=== PATIENT | female | born 1990 | race Caucasian/White ===

== ENCOUNTER 2017-11-21 19:24 | Observation (INO) | payer OTHER ==
[~2017-11-21] VITALS: Ht 162.6 cm; Wt 56.7 kg
--- NOTE | 2017-11-21 20:06 | ED Psychosocial ---
General Chief Complaint: Overdose Stated Complaint: OVERDOSE MED Source: patient Exam Limitations: no limitations History of Present Illness Date Seen by Provider: Nov 21, 2017 Time Seen by Provider: 20:05 Initial Comments Took between 20 and 30 of the 500 mg extra strength Tylenol tablets. She also took 2 hydrocodone unknown strength and 2 NyQuil tablets. She had alcohol this morning which she states was 3 shots. She did this because her moved out a few weeks ago. She called her vadim who then brought her to the emergency room. Timing/Duration: constant Associated Symptoms: ingestion Allergies and Home Medications Allergies Coded Allergies: No Known Drug Allergies (Unverified , 11/21/17) Home Medications No Active Prescriptions or Reported Meds Constitutional: see HPI EENTM: see HPI Respiratory: see HPI Cardiovascular: no symptoms reported Genitourinary: no symptoms reported Musculoskeletal: no symptoms reported Skin: no symptoms reported Psychiatric/Neurological: No Symptoms Reported Past Cdqleva-Ltxkyp-Knstvr Hx Patient Social History Recent Foreign Travel: No Contact w/Someone Who Travel: No Physical Exam Vital Signs Vital Sign - Last 12Hours 11/21/17 19:55 Temp 96.8 Pulse 110 Resp 18 B/P (MAP) 109/81 (90) Pulse Ox 95 O2 Delivery Room Air Capillary Refill : General Appearance: WD/WN, no apparent distress HEENT: other (lethargic) Neck: non-tender, full range of motion Respiratory: normal breath sounds, no respiratory distress, no accessory muscle use Cardiovascular: regular rate, rhythm, no murmur Gastrointestinal: normal bowel sounds, non tender, soft Extremities: normal range of motion, non-tender Neurologic/Psychiatric: normal mood/affect, oriented x 3, other (lethargic) Appearance/Memory: appropriate appearance, appropriate insight Thoughts/Hallucinations: normal thought pattern, no apparent hallucination Skin: normal color, warm/dry Progress/Results/Core Measures Results/Orders Lab Results Laboratory Tests Test 11/21/17 20:01 11/21/17 20:26 11/21/17 21:05 Range/Units White Blood Count 4.8 4.3-11.0 10^3/uL Red Blood Count 4.55 4.35-5.85 10^6/uL Hemoglobin 12.2 11.5-16.0 G/DL Hematocrit 37 35-52 % Mean Corpuscular Volume 82 80-99 FL Mean Corpuscular Hemoglobin 27 25-34 PG Mean Corpuscular Hemoglobin Concent 33 32-36 G/DL Red Cell Distribution Width 18.6 H 10.0-14.5 % Platelet Count 416 H 130-400 10^3/uL Mean Platelet Volume 10.1 7.4-10.4 FL Neutrophils (%) (Auto) 28 L 42-75 % Lymphocytes (%) (Auto) 57 H 12-44 % Monocytes (%) (Auto) 10 0-12 % Eosinophils (%) (Auto) 2 0-10 % Basophils (%) (Auto) 3 0-10 % Neutrophils # (Auto) 1.4 L 1.8-7.8 X 10^3 Lymphocytes # (Auto) 2.8 1.0-4.0 X 10^3 Monocytes # (Auto) 0.5 0.0-1.0 X 10^3 Eosinophils # (Auto) 0.1 0.0-0.3 10^3/uL Basophils # (Auto) 0.2 H 0.0-0.1 10^3/uL Neutrophils % (Manual) 42 % Lymphocytes % (Manual) 52 % Monocytes % (Manual) 4 % Eosinophils % (Manual) 1 % Basophils % (Manual) 1 % Band Neutrophils 0 % Blood Morphology Comment NORMAL Sodium Level 141 135-145 MMOL/L Potassium Level 4.5 3.6-5.0 MMOL/L Chloride Level 103 98-107 MMOL/L Carbon Dioxide Level 23 21-32 MMOL/L Anion Gap 15 H 5-14 MMOL/L Blood Urea Nitrogen 15 7-18 MG/DL Creatinine 1.15 0.60-1.30 MG/DL Estimat Glomerular Filtration Rate 56 BUN/Creatinine Ratio 13 Glucose Level 101 70-105 MG/DL Calcium Level 8.3 L 8.5-10.1 MG/DL Total Bilirubin 0.6 0.1-1.0 MG/DL Aspartate Amino Transf (AST/SGOT) 50 H 5-34 U/L Alanine Aminotransferase (ALT/SGPT) 29 0-55 U/L Alkaline Phosphatase 73 40-136 U/L Total Protein 7.4 6.4-8.2 GM/DL Albumin 3.8 3.2-4.5 GM/DL Serum Test, Qualitative NEGATIVE NEGATIVE Salicylates Level < 5.0 L 5.0-20.0 MG/DL Serum Alcohol 269 H <10 MG/DL Urine Color YELLOW Urine Clarity CLEAR Urine pH 5 5-9 Urine Specific [place] 1.020 1.016-1.022 Urine Protein NEGATIVE NEGATIVE Urine Glucose (UA) NEGATIVE NEGATIVE Urine Ketones NEGATIVE NEGATIVE Urine Nitrite NEGATIVE NEGATIVE Urine Bilirubin NEGATIVE NEGATIVE Urine Urobilinogen NORMAL NORMAL MG/DL Urine Leukocyte Esterase NEGATIVE NEGATIVE Urine RBC (Auto) 1+ H NEGATIVE Urine RBC RARE /HPF Urine WBC 0-2 /HPF Urine Squamous Epithelial Cells 5-10 /HPF Urine Crystals NONE /LPF Urine Bacteria TRACE /HPF Urine Casts NONE /LPF Urine Mucus NEGATIVE /LPF Urine Culture Indicated NO Urine Opiates Screen NEGATIVE NEGATIVE Urine Oxycodone Screen NEGATIVE NEGATIVE Urine Methadone Screen NEGATIVE NEGATIVE Urine Propoxyphene Screen NEGATIVE NEGATIVE Urine Barbiturates Screen NEGATIVE NEGATIVE Ur Tricyclic Antidepressants Screen NEGATIVE NEGATIVE Urine Phencyclidine Screen NEGATIVE NEGATIVE Urine Amphetamines Screen NEGATIVE NEGATIVE Urine Methamphetamines Screen NEGATIVE NEGATIVE Urine Benzodiazepines Screen NEGATIVE NEGATIVE Urine Cocaine Screen NEGATIVE NEGATIVE Urine Cannabinoids Screen NEGATIVE NEGATIVE Acetaminophen Level 100 *H 10-30 UG/ML My Orders Orders - FREDRICK STRATTON [employer] Cbc With Automated Diff (11/21/17 19:46) Comprehensive Metabolic Panel (11/21/17 19:46) Ua Culture If Indicated (11/21/17 19:46) Urine Bedside (11/21/17 19:46) Alcohol (11/21/17 19:46) Salicylate (11/21/17 19:46) Saline Lock/Iv-Start (11/21/17 19:46) Ekg Tracing (11/21/17 19:46) Drug Screen Stat (Urine) (11/21/17 20:03) Hcg,Qualitative Serum (11/21/17 20:03) Ns Iv 1000 Ml (Sodium Chloride 0.9%) (11/21/17 20:15) Ondansetron Injection (Zofran Injectio (11/21/17 20:15) Acetaminophen (11/21/17 21:00) Manual Differential (11/21/17 20:01) Acetylcysteine Injection (Acetadote Inje (11/21/17 21:30) Medications Given in ED Current Medications Medications Dose Ordered Sig/Rodrick Route Start Time Stop Time Status Last Admin Dose Admin Ondansetron HCl 8 mg ONCE ONCE IVP 11/21/17 20:15 11/21/17 20:16 DC 11/21/17 20:23 8 MG Vital Signs/I&O Vital Sign - Last 12Hours 11/21/17 19:55 Temp 96.8 Pulse 110 Resp 18 B/P (MAP) 109/81 (90) Pulse Ox 95 O2 Delivery Room Air Departure Communication (Admissions) Time/Spoke to Admitting Phy: 21:45 Communication I spoke with Dr. Lozano, we will admit the patient, consult mental health in AM. Progress Notes 2009-poison control did call to notify us prior to the patient's arrival that the patient would be coming as her had called them. They recommended typical tox screen, the 4 hour Tylenol level should be checked at 2100, if elevated then treat with acetylcysteine, however a Tylenol level before the 4 hour susy holds no value. 2145- spoke with poison control. Do not recommend treatment of the Tylenol overdose until the Tylenol level is over 150. Since this was drawn at the 4 hour susy we are already at peak plasma level so this will not need treatment. Impression Impression: Primary Impression: Suicide attempt Disposition: ADMITTED INPATIENT Condition: Stable Admissions Decision to Admit Reason: Admit from ER (General) Decision to Admit/Date: Nov 21, 2017 Time/Decision to Admit Time: 20:11 Departure-Patient Inst. Referrals: NO,LOCAL PHYSICIAN (PCP) Primary Care Physician Patient Instructions: ALCOHOL AND SUBSTANCE ABUSE Scripts No Active Prescriptions or Reported Meds FREDRICK STRATTON APRN Nov 21, 2017 20:06
[2017-11-21 20:10] LABS: BASOPHILS # (AUTO) 0.2 10^3/uL (0.0-0.1); BASOPHILS % (AUTO) 3 % (0-10); EOSINOPHILS # (AUTO) 0.1 10^3/uL (0.0-0.3); EOSINOPHILS % (AUTO) 2 % (0-10); HEMATOCRIT 37 % (35-52); HEMOGLOBIN 12.2 G/DL (11.5-16.0); LYMPHOCYTES # (AUTO) 2.8 X 10^3 (1.0-4.0); LYMPHOCYTES % (AUTO) 57 % (12-44); MEAN CORPUSCULAR HEMOGLOBIN 27 PG (25-34); MEAN CORPUSCULAR HGB CONC 33 G/DL (32-36); MEAN CORPUSCULAR VOLUME 82 FL (80-99); MEAN PLATELET VOLUME 10.1 FL (7.4-10.4); MONOCYTES # (AUTO) 0.5 X 10^3 (0.0-1.0); MONOCYTES % (AUTO) 10 % (0-12); NEUTROPHILS # (AUTO) 1.4 X 10^3 (1.8-7.8); NEUTROPHILS % (AUTO) 28 % (42-75); PLATELET COUNT 416 10^3/uL (130-400); RED BLOOD COUNT 4.55 10^6/uL (4.35-5.85); RED CELL DISTRIBUTION WIDTH 18.6 % (10.0-14.5); WHITE BLOOD COUNT 4.8 10^3/uL (4.3-11.0)
[2017-11-21] MEDS ORDERED: NS IV 1000 ML 1,000 ML IV SCH (20:15)
[2017-11-21] MEDS ORDERED: ONDANSETRON 4 MG/2 ML (SDV) Z0FRAN IVP ONE (20:15)
[2017-11-21 20:32] LABS: BILIRUBIN,URINE NEGATIVE (NEGATIVE); CLARITY,URINE CLEAR; COLOR,URINE YELLOW; GLUCOSE, URINE (UA) NEGATIVE (NEGATIVE); KETONES,URINE NEGATIVE (NEGATIVE); LEUKOCYTE ESTERASE ,URINE NEGATIVE (NEGATIVE); NITRITE,URINE NEGATIVE (NEGATIVE); PH,URINE 5 (5-9); PROTEIN,URINE NEGATIVE (NEGATIVE); UROBILINOGEN,URINE NORMAL (NORMAL)
[2017-11-21 20:36] LABS: ALANINE AMINOTRANSFERASE 29 U/L (0-55); ALBUMIN 3.8 GM/DL (3.2-4.5); ALKALINE PHOSPHATASE 73 U/L (40-136); BILIRUBIN,TOTAL 0.6 MG/DL (0.1-1.0); CALCIUM 8.3 MG/DL (8.5-10.1); CARBON DIOXIDE 23 MMOL/L (21-32); CHLORIDE 103 MMOL/L (98-107); GLUCOSE 101 MG/DL (70-105); POTASSIUM 4.5 MMOL/L (3.6-5.0); SODIUM 141 MMOL/L (135-145); TOTAL PROTEIN 7.4 GM/DL (6.4-8.2)
[2017-11-21 20:39] LABS: BUN/CREATININE RATIO 13; CREATININE SERUM 1.15 MG/DL (0.60-1.30); GFR ESTIMATED 56
[2017-11-21 20:40] LABS: SALICYLATE < 5.0 MG/DL (5.0-20.0)
[2017-11-21 20:44] LABS: BAND NEUTROPHILS 0 %; BASOPHILS % (MANUAL) 1 %; EOSINOPHILS % (MANUAL) 1 %; LYMPHOCYTES % (MANUAL) 52 %; MONOCYTES % (MANUAL) 4 %; NEUTROPHILS % (MANUAL) 42 %; RBC MORPH NORMAL
[2017-11-21 20:52] LABS: BACTERIA,URINE TRACE /HPF; RBC,URINE RARE /HPF; WBC,URINE 0-2 /HPF
[2017-11-21 20:58] LABS: AMPHETAMINE SCREEN, URINE NEGATIVE (NEGATIVE); BARBITURATE SCREEN URINE NEGATIVE (NEGATIVE); BENZODIAZEPINES SCREEN URINE NEGATIVE (NEGATIVE); CANNABINOID SCREEN, URINE NEGATIVE (NEGATIVE); COCAINE SCREEN URINE NEGATIVE (NEGATIVE); METHADONE STAT NEGATIVE (NEGATIVE); METHAMPHETAMINE SCREEN URINE S NEGATIVE (NEGATIVE); OPIATE SCREEN URINE NEGATIVE (NEGATIVE); OXYCODONE STAT NEGATIVE (NEGATIVE); PROPOXYPHENE STAT NEGATIVE (NEGATIVE); TRICYCLIC ANTIDEPRESSANTS SCRE NEGATIVE (NEGATIVE)
[2017-11-21] MEDS ORDERED: D5W IV ONE (21:30)
[2017-11-21] MEDS ORDERED: ACETYLCYSTEINE IV ONE (21:30)
[2017-11-21 21:59] LABS: INR 1.1 (0.8-1.4); PROTHROMBIN TIME PATIENT 14.3 SEC (12.2-14.7)
[2017-11-21 23:30] VITALS: BP 115/83
[2017-11-21 23:45] VITALS: BP 109/88
[2017-11-21] MEDS ORDERED: ONDANSETRON 4 MG/2 ML (SDV) Z0FRAN IV PRN (23:45)
[2017-11-22] VITALS (13 sets, daily range): BP systolic 98–120; BP diastolic 64–85
[2017-11-22] MEDS: NS IV 1000 ML 1,000 ML IV SCH ×2 (00:01→08:46)
[2017-11-22 05:06] LABS: BASOPHILS # (AUTO) 0.1 10^3/uL (0.0-0.1); BASOPHILS % (AUTO) 3 % (0-10); EOSINOPHILS # (AUTO) 0.1 10^3/uL (0.0-0.3); EOSINOPHILS % (AUTO) 1 % (0-10); HEMATOCRIT 33 % (35-52); HEMOGLOBIN 10.7 G/DL (11.5-16.0); LYMPHOCYTES % (AUTO) 41 % (12-44); MEAN CORPUSCULAR HEMOGLOBIN 27 PG (25-34); MEAN CORPUSCULAR HGB CONC 32 G/DL (32-36); MEAN CORPUSCULAR VOLUME 82 FL (80-99); MEAN PLATELET VOLUME 10.3 FL (7.4-10.4); MONOCYTES # (AUTO) 0.5 X 10^3 (0.0-1.0); MONOCYTES % (AUTO) 11 % (0-12); NEUTROPHILS # (AUTO) 2.2 X 10^3 (1.8-7.8); NEUTROPHILS % (AUTO) 45 % (42-75); PLATELET COUNT 310 10^3/uL (130-400); RED BLOOD COUNT 4.02 10^6/uL (4.35-5.85); RED CELL DISTRIBUTION WIDTH 18.4 % (10.0-14.5); WHITE BLOOD COUNT 4.8 10^3/uL (4.3-11.0)
[2017-11-22 05:26] LABS: ALANINE AMINOTRANSFERASE 25 U/L (0-55); ALBUMIN 3.4 GM/DL (3.2-4.5); ALKALINE PHOSPHATASE 70 U/L (40-136); BILIRUBIN,TOTAL 0.8 MG/DL (0.1-1.0); BUN/CREATININE RATIO 13; CALCIUM 7.6 MG/DL (8.5-10.1); CARBON DIOXIDE 16 MMOL/L (21-32); CHLORIDE 107 MMOL/L (98-107); CREATININE SERUM 0.94 MG/DL (0.60-1.30); GFR ESTIMATED > 60; POTASSIUM 3.8 MMOL/L (3.6-5.0); SODIUM 140 MMOL/L (135-145); TOTAL PROTEIN 6.5 GM/DL (6.4-8.2)
[2017-11-22 05:32] LABS: GLUCOSE 60 MG/DL (70-105)
[2017-11-22] MEDS ORDERED: 1/2 NS IV SOLUTION 1,000 ML IV PRN (05:50)
[2017-11-22] MEDS ORDERED: LORazepam INJ 2 MG/ML (ATIVAN) VIAL IM/IV PRN (06:00)
[2017-11-22] MEDS ORDERED: LORazepam 1 MG (ATIVAN) TAB PO PRN (06:00)
[2017-11-22] MEDS ORDERED: LORazepam INJ 2 MG/ML (ATIVAN) VIAL IV PRN (06:00)
[2017-11-22] MEDS ORDERED: SENNA W/DOCUSATE (SENOKOT S) TABLET PO PRN (06:00)
[2017-11-22] MEDS ORDERED: ONDANSETRON 4 MG/2 ML (SDV) Z0FRAN IV PRN (06:00)
[2017-11-22] MEDS ORDERED: D5 1/2 NS 1000 ML IV SOLUTION 1,000 ML IV PRN (06:00)
[2017-11-22] MEDS ORDERED: MAGNESIUM 1 GM/100 ML IVPB 100 ML IV SCH (06:00)
[2017-11-22] MEDS ORDERED: POTASSIUM CL 10MEQ/50ML IVPB 50 ML IV SCH (06:00)
[2017-11-22] MEDS ORDERED: KCL 20 MEQ TAB (K-DUR) PO SCH (06:00)
[2017-11-22] MEDS ORDERED: ANTACID SUSP 30 ML UDC (MYLANTA) PO PRN (06:00)
[2017-11-22] MEDS ORDERED: ONDANSETRON 4 MG (ZOFRAN) ORAL DISSOLVE TAB SL PRN (06:00)
[2017-11-22] MEDS ORDERED: THIAMINE 100 MG (VITAMIN B-1) TAB PO SCH (07:00)
[2017-11-22] MEDS ORDERED: MULTIVIT W/MINERALS TAB (THERAGRAN M) PO SCH (07:00)
[2017-11-22] MEDS ORDERED: INFLUENZA TRIvalent 2017-2018 0.5 ML/45 MCG SYR IM ONE (07:15)
[2017-11-22] MEDS ORDERED: FOLIC ACID 1 MG TAB PO SCH (09:00)
[2017-11-22] MEDS ORDERED: MAGNESIUM OXIDE (MAG-OX)400 MG TAB PO SCH (09:00)
--- NOTE | 2017-11-22 10:34 | Short Stay Summary-Hospitalist ---
HPI History of Present Illness: HPI/Chief Complaint Pt is a 26yoCF with no known past medical history who presented to the ER following an acute tylenol ingestion. She reports that she took 20 500mg tabs in an effort to make her come back. She states she did this because he just moved out and she was trying to get his attention. She adamantly denies any intent for self harm but was only trying to get her 's attention. She has never suffered from depression nor had any previous self harm incidents. She denies thought of suicide or homicide. She also believes that her alcohol intake prompted her to make such an extreme decision. Source: patient Date Seen 11/22/17 Time Seen by Provider: 08:00 Attending Physician Kulwinder Jarrell MD PCP No,Local Physician Referring Physician Date of Admission Nov 21, 2017 at 21:44 Home Medications & Allergies Home Medications Reviewed patient Home Medication Reconciliation Form Allergies Allergies Coded Allergies No Known Drug Allergies (Unverified11/21/17) Past Iqsgmyt-Gukhkq-Inmxbh Hx Patient Social History Marrital Status: Alcohol Use: Occasionally Uses Number of Drinks Today: 3 Alcohol Beverage of Choice: Vodka Recreational Drug Use: No Smoking Status: Never a Smoker Physical Abuse Screen: No Sexual Abuse: No Recent Foreign Travel: No Contact w/other who traveled: No Recent Hopitalizations: No Recent Infectious Disease Expo: No Seasonal Allergies Seasonal Allergies: No Surgeries No Respiratory No Cardiovascular No Neurological No Reproductive System : No Genitourinary No Gastrointestinal No Musculoskeletal No Endocrine History of Endocrine Disorders: No HEENT History of HEENT Disorders: No Cancer No Psychosocial History of Psychiatric Problem: No Integumentary History of Skin or Integumenta: No Blood Transfusions History of Blood Disorders: No Adverse Reaction to a Blood Tr: No Review of Systems Constitutional: No chills, No fever EENTM: No blurred vision, No double vision, No nose congestion, No throat pain Respiratory: No cough, No dyspnea on exertion, No short of breath Cardiovascular: No chest pain, No edema, No palpitations Gastrointestinal: No abdominal pain, No constipation, No diarrhea, No nausea, No vomiting Genitourinary: No dysuria, No frequency Musculoskeletal: No joint pain, No muscle pain Skin: No lesions, No rash Psychiatric/Neurological: Emotional Problems, Denies Headache, Denies Numbness , Denies Tingling Physical Exam Physical Exam Vital Signs Vital Sign - Last 12Hours 11/21/17 19:55 Temp 96.8 Pulse 110 Resp 18 B/P (MAP) 109/81 (90) Pulse Ox 95 O2 Delivery Room Air Capillary Refill : Less Than 3 Seconds General Appearance: No Apparent Distress, WD/WN HEENT: PERRL/EOMI, Moist Mucous Membranes, No Scleral Icterus (L), No Scleral Icterus (R) Neck: Non Tender, Supple Respiratory: Lungs Clear, No Respiratory Distress Cardiovascular: Regular Rate, Rhythm, No Murmur Gastrointestinal: Normal Bowel Sounds, Non Tender, Soft Extremity: Normal Capillary Refill, No Calf Tenderness Neurologic/Psychiatric: Alert, Oriented x3, Other (normal affect) Skin: Normal Color, Warm/Dry Results Results/Procedures Lab Laboratory Tests 11/21/17 20:01 11/22/17 04:50 Short Stay Diagnosis Discharge Diagnosis-Short Stay Admission Diagnosis Tylenol Ingestion Final Discharge Diagnosis Tylenol Ingestion Conclusion Plan See Problems Diagnosis/Problems Diagnosis/Problems (1) Tylenol overdose Assessment & Plan: Tylenol level below treatment threshold ED discussed with Poison Control and agreed with no NAC treatment Repeat tylenol level negative Denies any suicidal ideation and adamant that this was a cry for attention She signed a self harm contract and was seen and evaluated by [facility] and deemed safe for discharge I strongly recommended follow up with Mental Health and establishing a PCP. Qualifiers: Qualified Codes: T39.1X2A - Poisoning by 4-aminophenol derivatives, intentional self-harm, initial encounter (2) Normocytic anemia Assessment & Plan: Mild Clinical Quality Measures DVT/VTE Risk/Contraindication: RFS Level Per Nursing on Admit: 1=Low/No VTE PPX KULWINDER JARRELL MD Nov 22, 2017 10:34
--- NOTE | 2017-11-22 11:33 | History & Physical-Hospitalist ---
SUSANNE GAN MED STUDENT 11/22/17 1133: HPI History of Present Illness: HPI/Chief Complaint CC: suicide attempt HPI: Pt is a 26yoCF with no known past medical history who presented to the ER following ingestion of ~25 500mg extra strength tylenol, 2 hydrocodone of unknown dose, 2 NyQuil, and alcohol of uncertain quantity. Patient called her who promptly brought her to the ER. Patient reports that her moved out of their house about 2 weeks ago, and they have been fighting frequently since this time. Ingestion of the listed substances was reportedly for "attention [of her ]". Patient states that she is not suicidal, and "knew that the amount ingested would not cause her significant harm." She denies any previous SA, and denies any current thoughts or plans to hurt herself or others. Patient denies access to firearms in the home. Source: patient Exam Limitations: no limitations Date Seen 11/22/17 Time Seen by Provider: 09:30 Attending Physician Kulwinder Jarrell MD PCP No,Local Physician Referring Physician Date of Admission Nov 21, 2017 at 21:44 Home Medications & Allergies Home Medications Reviewed patient Home Medication Reconciliation Form Allergies Allergies Coded Allergies No Known Drug Allergies (Unverified11/21/17) Past Verhvsi-Shhssd-Frenqo Hx Patient Social History Marrital Status: Number of Children: 1 Number of living children: 1 Alcohol Use: Occasionally Uses Number of Drinks Today: 3 Alcohol Beverage of Choice: Vodka Recreational Drug Use: No Smoking Status: Never a Smoker Physical Abuse Screen: No Sexual Abuse: No Recent Foreign Travel: No Contact w/other who traveled: No Recent Hopitalizations: No Recent Infectious Disease Expo: No Seasonal Allergies Seasonal Allergies: No Surgeries No Respiratory No Cardiovascular No Neurological No Reproductive System : No Genitourinary No Gastrointestinal No Musculoskeletal No Endocrine History of Endocrine Disorders: No HEENT History of HEENT Disorders: No Cancer No Psychosocial History of Psychiatric Problem: No Integumentary History of Skin or Integumenta: No Blood Transfusions History of Blood Disorders: No Adverse Reaction to a Blood Tr: No Review of Systems Constitutional: No chills, No diaphoresis, No dizziness, No weakness EENTM: No hearing loss, No blurred vision, No double vision Respiratory: No cough, No dyspnea on exertion, No short of breath Cardiovascular: No chest pain, No palpitations Gastrointestinal: No abdominal pain, No constipation, No diarrhea, loss of appetite, No nausea, No vomiting Genitourinary: no symptoms reported Musculoskeletal: no symptoms reported Skin: no symptoms reported Psychiatric/Neurological: Emotional Problems Physical Exam Physical Exam Vital Signs Vital Sign - Last 12Hours 11/21/17 19:55 Temp 96.8 Pulse 110 Resp 18 B/P (MAP) 109/81 (90) Pulse Ox 95 O2 Delivery Room Air Capillary Refill : Less Than 3 Seconds General Appearance: No Apparent Distress, WD/WN HEENT: PERRL/EOMI, Moist Mucous Membranes Neck: Normal Inspection, Non Tender, Supple Respiratory: Lungs Clear, Normal Breath Sounds Cardiovascular: Regular Rate, Rhythm Gastrointestinal: Normal Bowel Sounds Extremity: Normal Capillary Refill, Normal Inspection, No Pedal Edema Neurologic/Psychiatric: Alert, Oriented x3, No Motor/Sensory Deficits Skin: Normal Color, Warm/Dry Results Results/Procedures Lab Laboratory Tests 11/21/17 20:01 11/22/17 04:50 Assessment/Plan Admission Diagnosis Acetaminophen toxicity Assessment and Plan 1) Acetaminophen toxicity - 4 hour level: 100 which does not meet threshold for NAC as verified with poison control - repeat level this AM: <10 - mental health eval today 2) High anion gap metabolic acidosis - secondary to toxicity - continue to monitor 3) Alcohol abuse - AWAS, CIWA - continue folic acid and thiamine FEN: IVF, replace lytes, regular diet VTE: none Code: full Dispo: discharge today pending mental health eval Diagnosis/Problems Diagnosis/Problems (1) Suicide attempt Status: Acute (2) Normocytic anemia (3) Tylenol overdose Qualifiers: Qualified Codes: T39.1X2A - Poisoning by 4-aminophenol derivatives, intentional self-harm, initial encounter Clinical Quality Measures DVT/VTE Risk/Contraindication: RFS Level Per Nursing on Admit: 1=Low/No VTE PPX KULWINDER JARRELL MD 11/24/17 1514: Home Medications & Allergies Allergies Allergies Coded Allergies No Known Drug Allergies (Unverified11/21/17) Physical Exam Physical Exam Vital Signs Vital Sign - Last 12Hours 11/21/17 19:55 Temp 96.8 Pulse 110 Resp 18 B/P (MAP) 109/81 (90) Pulse Ox 95 O2 Delivery Room Air Assessment/Plan Admission Diagnosis Note used for educational purposes only. Please see my note for diagnosis and treatment plan. SUSANNE GAN MED STUDENT Nov 22, 2017 11:33 KULWINDER JARRELL MD Nov 24, 2017 15:14
== END 2017-11-22 14:04 | disposition home or self-care (01) ==
LOC: ER 19:29 → UNDOADMOB 21:44 → ICU 21:44 → UNDODISOB 11-22 14:35
PROVIDERS: ADMIT Family Medicine; ATTEND Family Medicine
DX: T39.1X2A Poisoning by 4-Aminophenol derivatives, intentional self-harm, initial encounter (principal); T40.2X2A Poisoning by other opioids, intentional self-harm, initial encounter; T51.0X2A Toxic effect of ethanol, intentional self-harm, initial encounter; D64.9 Anemia, unspecified; F10.10 Alcohol abuse, uncomplicated
CPT/HCPCS: 36415; 80053; 80306; 80320; 80329; 81000; 82962; 84703; 85007; 85025; 85027; 85610; 85730; 87081; 93005; 96361; 96374; G0378

== ENCOUNTER 2019-05-01 18:27 | Emergency (ER) | payer OTHER ==
[~2019-05-01] VITALS: Ht 165.1 cm; Wt 50.8 kg
[2019-05-01 18:58] LABS: BASOPHILS # (AUTO) 0.1 10^3/uL (0.0-0.1); BASOPHILS % (AUTO) 1 % (0-10); EOSINOPHILS % (AUTO) 0 % (0-10); HEMATOCRIT 38 % (35-52); HEMOGLOBIN 13.4 G/DL (11.5-16.0); LYMPHOCYTES # (AUTO) 1.4 X 10^3 (1.0-4.0); LYMPHOCYTES % (AUTO) 23 % (12-44); MEAN CORPUSCULAR HEMOGLOBIN 32 PG (25-34); MEAN CORPUSCULAR HGB CONC 36 G/DL (32-36); MEAN CORPUSCULAR VOLUME 89 FL (80-99); MEAN PLATELET VOLUME 10.7 FL (7.4-10.4); MONOCYTES # (AUTO) 0.9 X 10^3 (0.0-1.0); MONOCYTES % (AUTO) 15 % (0-12); NEUTROPHILS # (AUTO) 3.7 X 10^3 (1.8-7.8); NEUTROPHILS % (AUTO) 61 % (42-75); PLATELET COUNT 213 10^3/uL (130-400); WHITE BLOOD COUNT 6.1 10^3/uL (4.3-11.0)
--- NOTE | 2019-05-01 19:05 | ED Abdominal Pain ---
General Chief Complaint: Abdominal/GI Problems Stated Complaint: ABD PAIN Nursing Triage Note: Pt arrived pov from [facility]. CO abd pain with concern it may be her appendix. Sepsis Screen: No Definite Risk History of Present Illness Date Seen by Provider: May 01, 2019 Time Seen by Provider: 18:50 Initial Comments 28 year old female presents for 3-4 day history of right abdominal pain. RUQ with no associated n/v/d. Denies constipation or change in stool color/co nsistency. Minimal appetite but drinking water and gatorade. Worked today, no problems. Rates pain 8/10. No previous abdominal surgeries. Evaluated at [facility] and sent her for follow up on Appendix. Took Excedrin 2 days ago and ibuprofen yesterday for pain. Pain is getting worse. Timing/Duration: 2-3 Days Severity/Quality: Moderate Location: RUQ Radiation: Scapula Activities at Onset: None Modifying Factors: Improves With Lying down, Improves With Resting Associated Symptoms: No Back Pain, No Chest Pain, No Diaphoresis, No Fever/Chills, No Fatigue, No Headache; Heartburn; No Nausea/Vomiting, No Rash, No Shortness of Air, No Swelling/Mass in Abdomen, No Syncope, No Weakness Allergies and Home Medications Allergies Coded Allergies: No Known Drug Allergies (Unverified , 11/21/17) Home Medications No Active Prescriptions or Reported Meds Patient Home Medication List Home Medication List Reviewed: Yes Review of Systems Review of Systems Constitutional: no symptoms reported, see HPI Gastrointestinal: See HPI; Denies Abdomen Distended; Abdominal Pain; Denies Blo od Streaked Stools, Denies Constipated, Denies Diarrhea, Denies Nausea; Poor Appetite (right upper quadrant); Denies Vomiting All Other Systems Reviewed Negative Unless Noted: Yes Past Xkihdyw-Fuxutf-Xnvwho Hx Past Med/Social Hx: Reviewed Nursing Past Med/Soc Hx Patient Social History Alcohol Use: Occasionally Uses Number of Drinks Today: FF Alcohol Beverage of Choice: Beer, Vodka Recreational Drug Use: No Smoking Status: Never a Smoker 2nd Hand Smoke Exposure: No Recent Foreign Travel: No Contact w/Someone Who Travel: No Recent Infectious Disease Expo: No Recent Hopitalizations: No Immunizations Up To Date Tetanus Booster (TDap): Unknown Seasonal Allergies Seasonal Allergies: No Past Medical History Surgeries: No Respiratory: No Cardiac: No Neurological: No : No Last Menstrual Period: Apr 24, 2019 Genitourinary: No Gastrointestinal: No Musculoskeletal: No Endocrine: No HEENT: No Cancer: No Psychosocial: No Integumentary: No Blood Disorders: No Adverse Reaction/Blood Tranf: No Physical Exam Vital Signs Vital Signs - First Documented 05/01/19 18:34 Temp 98.1 Pulse 68 Resp 14 B/P (MAP) 115/82 (93) Pulse Ox 100 O2 Delivery Room Air Capillary Refill : Less Than 3 Seconds Height/Weight/BMI Height: 5'5.00" Weight: 112lbs. 0.0oz. [id number]; 21.5 BMI Method:Stated General Appearance: WD/WN, no apparent distress Neck: non-tender, full range of motion, supple, normal inspection Respiratory: chest non-tender, lungs clear, normal breath sounds Cardiovascular: normal peripheral pulses, regular rate, rhythm Gastrointestinal: normal bowel sounds, soft; No distended, No guarding, No rebound; tenderness (right upper quadrant with positive Antunez sign.); No hernia, No mass Extremities: normal range of motion, non-tender, normal capillary refill Back: normal inspection, no CVA tenderness; No CVA tenderness (R), No CVA tenderness (L) Neurologic/Psychiatric: no motor/sensory deficits, alert, normal mood/affect, oriented x 3 Skin: normal color, warm/dry Progress/Results/Core Measures Results/Orders Lab Results Laboratory Tests Test 05/01/19 18:50 05/01/19 19:08 05/01/19 20:15 05/01/19 21:16 Range/Units White Blood Count 6.1 4.3-11.0 10^3/uL Red Blood Count 4.23 L 4.35-5.85 10^6/uL Hemoglobin 13.4 11.5-16.0 G/DL Hematocrit 38 35-52 % Mean Corpuscular Volume 89 80-99 FL Mean Corpuscular Hemoglobin 32 25-34 PG Mean Corpuscular Hemoglobin Concent 36 32-36 G/DL Red Cell Distribution Width 18.0 H 10.0-14.5 % Platelet Count 213 130-400 10^3/uL Mean Platelet Volume 10.7 H 7.4-10.4 FL Neutrophils (%) (Auto) 61 42-75 % Lymphocytes (%) (Auto) 23 12-44 % Monocytes (%) (Auto) 15 H 0-12 % Eosinophils (%) (Auto) 0 0-10 % Basophils (%) (Auto) 1 0-10 % Neutrophils # (Auto) 3.7 1.8-7.8 X 10^3 Lymphocytes # (Auto) 1.4 1.0-4.0 X 10^3 Monocytes # (Auto) 0.9 0.0-1.0 X 10^3 Eosinophils # (Auto) 0.0 0.0-0.3 10^3/uL Basophils # (Auto) 0.1 0.0-0.1 10^3/uL Sodium Level 125 *L 127 L 135-145 MMOL/L Potassium Level 4.2 5.4 H 3.6-5.0 MMOL/L Chloride Level 84 L 91 L 98-107 MMOL/L Carbon Dioxide Level 28 13 L 21-32 MMOL/L Anion Gap 13 23 H 5-14 MMOL/L Blood Urea Nitrogen 11 9 7-18 MG/DL Creatinine 0.96 0.99 0.60-1.30 MG/DL Estimat Glomerular Filtration Rate > 60 > 60 BUN/Creatinine Ratio 11 9 Glucose Level 87 94 70-105 MG/DL Calcium Level 8.4 L 7.7 L 8.5-10.1 MG/DL Corrected Calcium 9.0 8.3 L 8.5-10.1 MG/DL Total Bilirubin 1.7 H 1.6 H 0.1-1.0 MG/DL Aspartate Amino Transf (AST/SGOT) 414 H 435 H 5-34 U/L Alanine Aminotransferase (ALT/SGPT) 274 H 251 H 0-55 U/L Alkaline Phosphatase 147 H 136 40-136 U/L Total Protein 8.2 9.1 H 6.4-8.2 GM/DL Albumin 3.3 3.2 3.2-4.5 GM/DL Amylase Level 67 25-125 U/L Lipase 330 H 8-78 U/L Serum Test, Qualitative NEGATIVE NEGATIVE Acetaminophen Level 22 15 10-30 UG/ML Glucometer 101 70-110 MG/DL Urine Color YELLOW Urine Clarity CLEAR Urine pH 8 5-9 Urine Specific [place] 1.010 L 1.016-1.022 Urine Protein NEGATIVE NEGATIVE Urine Glucose (UA) NEGATIVE NEGATIVE Urine Ketones NEGATIVE NEGATIVE Urine Nitrite NEGATIVE NEGATIVE Urine Bilirubin NEGATIVE NEGATIVE Urine Urobilinogen NORMAL NORMAL MG/DL Urine Leukocyte Esterase 1+ H NEGATIVE Urine RBC (Auto) NEGATIVE NEGATIVE Urine RBC NONE /HPF Urine WBC 0-2 /HPF Urine Squamous Epithelial Cells 0-2 /HPF Urine Crystals NONE /LPF Urine Bacteria TRACE /HPF Urine Casts NONE /LPF Urine Mucus NEGATIVE /LPF Urine Culture Indicated NO Urine Opiates Screen NEGATIVE NEGATIVE Urine Oxycodone Screen NEGATIVE NEGATIVE Urine Methadone Screen NEGATIVE NEGATIVE Urine Propoxyphene Screen NEGATIVE NEGATIVE Urine Barbiturates Screen NEGATIVE NEGATIVE Ur Tricyclic Antidepressants Screen NEGATIVE NEGATIVE Urine Phencyclidine Screen NEGATIVE NEGATIVE Urine Amphetamines Screen NEGATIVE NEGATIVE Urine Methamphetamines Screen NEGATIVE NEGATIVE Urine Benzodiazepines Screen NEGATIVE NEGATIVE Urine Cocaine Screen NEGATIVE NEGATIVE Urine Cannabinoids Screen NEGATIVE NEGATIVE My Orders Orders - NINA,BRENDA CAREER AND GUIDANCE COUNSELOR Amylase (05/01/19 18:52) Cbc With Automated Diff (05/01/19 18:52) Comprehensive Metabolic Panel (05/01/19 18:52) Lipase (05/01/19 18:52) Ua Culture If Indicated (05/01/19 18:52) Accucheck Stat ONCE (05/01/19 18:52) Ed Iv/Invasive Line Start (05/01/19 19:17) Ns Iv 1000 Ml (Sodium Chloride 0.9%) (05/01/19 19:17) Ketorolac Injection (Toradol Injection) (05/01/19 19:32) Us Gallbladder [id number] (05/01/19 19:32) Hcg,Qualitative Serum (05/01/19 19:42) Ketorolac Injection (Toradol Injection) (05/01/19 19:30) Acetaminophen (05/01/19 20:00) Drug Screen Stat (Urine) (05/01/19 21:00) Acetaminophen (05/01/19 21:10) Comprehensive Metabolic Panel (05/01/19 21:10) Vital Signs/I&O 05/01/19 05/01/19 18:34 21:50 Temp 98.1 98.1 Pulse 68 68 Resp 14 18 B/P (MAP) 115/82 (93) 109/78 (88) Pulse Ox 100 100 O2 Delivery Room Air Blood Pressure Mean: 93 Progress Progress Note : Time: 18:50 Progress Note Patient seen and evaluated, will obtain labs and UA. 1914 Toradol 30 mg IV and normal saline 1 L. Patient has not been able to provide a UA. 1929 discussed labs and exam with Dr. Rincon will obtain ultrasound of gall bladder. Patient denies history of pancreatitis or hepatitis. 1999 and acetaminophen level elevated, patient denies recent use of any Tylenol or other products contain acetaminophen. Ultrasound normal for pancreas and gallbladder. 2029 patient reports pain has improved since the Toradol. She reports no further abdominal pain, nausea or vomiting. 2099 Dr. Rincon recommended low fat/no dairy diet, follow up in 1 week with him. 2129 discharge instructions and return precautions reviewed with the patient. All questions answered. Diagnostic Imaging Diagonstic Imaging: Ultrasound Plain Films/CT/US/NM/MRI: abdomen Comments NAME: GORDON MICHAEL [facility] REC#: [id number] PT STATUS: REG ER : 1990 PHYSICIAN: BRENDA WOOD ADMIT DATE: 05/01/19/ER Draft Date of Exam:05/01/19 US GALLBLADDER [id number] PROCEDURE: US Gallbladder. TECHNIQUE: Multiple real-time grayscale images were obtained over the right upper quadrant in various projections. INDICATION: Abdominal pain. Liver is normal in size at 16.3 cm. No discrete liver mass is identified. Portal vein is patent and shows normal direction of flow. Gallbladder is without stones or sludge. No wall thickening or biliary ductal dilatation is seen. Pancreas is unremarkable. Right kidney is without calculi or hydronephrosis. There is no ascites. IMPRESSION: Unremarkable gallbladder ultrasound. Dictated on workstation # [id number] Dict: 05/01/192007 Trans: 05/01/192011 PADDY [id number] Interpreted by: FERNANDA DAVENPORT MD Electronically signed by Reviewed: Reviewed/Discussed Departure Impression Primary Impression: Pain of upper abdomen Disposition: HOME, SELF-CARE Condition: Improved Departure-Patient Inst. Decision time for Depature: 21:15 Referrals: NO,LOCAL PHYSICIAN (PCP/Family) Primary Care Physician Patient Instructions: Acute Abdomen (Belly Pain), Adult (DC) Add. Discharge Instructions: Follow up with Dr Rincon, call his office tomorrow for 1 week appt. [phone] Avoid dairy and fats in diet (no fried foods or high fat foods). If pain increases, go to clear liquid diet and call for appointment. Increase water intake. You may take ibuprofen 600 mg every 8 hours for pain. Return to emergency department for fever greater than 101, increased abdominal pain associated with nausea and vomiting, or new concerns. All discharge instructions reviewed with patient and/or family. Voiced understanding. Scripts No Active Prescriptions or Reported Meds Copy Copies To 1: JERROD RINCON AMY ARNP May 01, 2019 19:05
[2019-05-01 19:15] LABS: ALANINE AMINOTRANSFERASE 274 U/L (0-55); ALBUMIN 3.3 GM/DL (3.2-4.5); ALKALINE PHOSPHATASE 147 U/L (40-136); AMYLASE 67 U/L (25-125); BILIRUBIN,TOTAL 1.7 MG/DL (0.1-1.0); BUN/CREATININE RATIO 11; CALCIUM 8.4 MG/DL (8.5-10.1); CARBON DIOXIDE 28 MMOL/L (21-32); CHLORIDE 84 MMOL/L (98-107); CREATININE SERUM 0.96 MG/DL (0.60-1.30); GFR ESTIMATED > 60; GLUCOSE 87 MG/DL (70-105); LIPASE 330 U/L (8-78); POTASSIUM 4.2 MMOL/L (3.6-5.0); TOTAL PROTEIN 8.2 GM/DL (6.4-8.2)
[2019-05-01 19:16] LABS: SODIUM 125 MMOL/L (135-145)
[2019-05-01] MEDS ORDERED: NS IV 1000 ML 1,000 ML IV SCH (19:17)
[2019-05-01] MEDS ORDERED: KETOROLAC 30 MG/ML VIAL ONE (19:30)
[2019-05-01] MEDS ORDERED: KETOROLAC 30 MG/ML VIAL IVP STA (19:32)
--- NOTE | 2019-05-01 20:12 | Diagnostic Imaging Report ---
PROCEDURE: US Gallbladder. TECHNIQUE: Multiple real-time grayscale images were obtained over the right upper quadrant in various projections. INDICATION: Abdominal pain. Liver is normal in size at 16.3 cm. No discrete liver mass is identified. Portal vein is patent and shows normal direction of flow. Gallbladder is without stones or sludge. No wall thickening or biliary ductal dilatation is seen. Pancreas is unremarkable. Right kidney is without calculi or hydronephrosis. There is no ascites. IMPRESSION: Unremarkable gallbladder ultrasound. Dictated by: Dictated on workstation # [id number]
[2019-05-01 20:22] LABS: BILIRUBIN,URINE NEGATIVE (NEGATIVE); CLARITY,URINE CLEAR; COLOR,URINE YELLOW; GLUCOSE, URINE (UA) NEGATIVE (NEGATIVE); KETONES,URINE NEGATIVE (NEGATIVE); LEUKOCYTE ESTERASE ,URINE 1+ (NEGATIVE); NITRITE,URINE NEGATIVE (NEGATIVE); PH,URINE 8 (5-9); PROTEIN,URINE NEGATIVE (NEGATIVE); UROBILINOGEN,URINE NORMAL (NORMAL)
[2019-05-01 20:29] LABS: BACTERIA,URINE TRACE /HPF; SQUAMOUS EPITHELIAL CELL,UR 0-2 /HPF; WBC,URINE 0-2 /HPF
[2019-05-01 21:36] LABS: ACETAMINOPHEN 15 UG/ML (10-30); ALBUMIN 3.2 GM/DL (3.2-4.5); ALKALINE PHOSPHATASE 136 U/L (40-136); BILIRUBIN,TOTAL 1.6 MG/DL (0.1-1.0); BUN/CREATININE RATIO 9; CALCIUM 7.7 MG/DL (8.5-10.1); CARBON DIOXIDE 13 MMOL/L (21-32); CHLORIDE 91 MMOL/L (98-107); CREATININE SERUM 0.99 MG/DL (0.60-1.30); GFR ESTIMATED > 60; GLUCOSE 94 MG/DL (70-105); SODIUM 127 MMOL/L (135-145); TOTAL PROTEIN 9.1 GM/DL (6.4-8.2)
[2019-05-01 21:38] LABS: POTASSIUM 5.4 MMOL/L (3.6-5.0)
[2019-05-01 21:50] VITALS: BP 109/78
[2019-05-01 21:57] LABS: ALANINE AMINOTRANSFERASE 251 U/L (0-55)
[2019-05-01 22:05] LABS: AMPHETAMINE SCREEN, URINE NEGATIVE (NEGATIVE); BARBITURATE SCREEN URINE NEGATIVE (NEGATIVE); BENZODIAZEPINES SCREEN URINE NEGATIVE (NEGATIVE); CANNABINOID SCREEN, URINE NEGATIVE (NEGATIVE); COCAINE SCREEN URINE NEGATIVE (NEGATIVE); METHADONE STAT NEGATIVE (NEGATIVE); METHAMPHETAMINE SCREEN URINE S NEGATIVE (NEGATIVE); OPIATE SCREEN URINE NEGATIVE (NEGATIVE); OXYCODONE STAT NEGATIVE (NEGATIVE); PROPOXYPHENE STAT NEGATIVE (NEGATIVE); TRICYCLIC ANTIDEPRESSANTS SCRE NEGATIVE (NEGATIVE)
== END 2019-05-01 21:54 | disposition home or self-care (01) ==
LOC: EDUNIT# 18:27 → ER 18:29
DX: R10.11 Right upper quadrant pain (principal)
CPT/HCPCS: 36415; 76705; 80053; 80306; 80329; 81000; 82150; 82962; 83690; 84703; 85025